=== PATIENT | male | born 1995 | race Caucasian/White ===

== ENCOUNTER 2017-10-25 07:56 | Emergency (ER) | payer MEDICAID, SELFPAY ==
[2017-10-25 08:09] VITALS: BP 132/72; PULSE 60; RESP 16; TEMP 37; O2SAT 100
--- NOTE | 2017-10-25 08:26 | ED.GENADUL ---
Disposition Clinical Impression: Dental caries, Chronic dental pain Disposition: HOME Condition: Stable Instructions: Dental Caries (ED), Chronic Pain (ED) Additional Instructions: Alternate Tylenol and Motrin as needed and directed for pain. Take the antibiotics until finished. Follow-up with a dentist for reevaluation and for likely dental extraction. Return immediately to the emergency department any worsening or new concerning symptoms such as fever, increased pain, redness, swelling and difficulty swallowing. Prescriptions: Penicillin V Potassium 500 mg PO QID 7 Days tablet Forms: Work Release Medical Decision Making - Medical Decision Making 22-year-old male who presents with right lower toothache for the past month worse since yesterday. There are dental caries and missing teeth throughout. Area of dental pain is noted that majority of tooth is missing and base is still present with surrounding edema and erythema but no dental abscess. No evidence of Kwame's angina. Patient is speaking in full sentences and swallowing without difficulty. Vitals within normal limits. Patient does not have a primary care doctor or dentist. Patient given dose of Tylenol here. Patient states he can go directly to the pharmacy. Will give a prescription for penicillin. Patient instructed that he needs to follow-up with a dentist for reevaluation and likely dental extraction. Patient was given dental follow-up information and plan was discussed with care management. Patient was instructed to return immediately if worse. History of Present Illness - General Chief complaint: DentalOral Stated complaint: TOOTH ACHE Time Seen by Provider: 10/25/17 08:07 Source: patient Mode of arrival: ambulatory Limitations: no limitations - History of Present Illness Initial comments: Patient is a 22-year-old male who presents with right lower toothache for the past month. Patient has been taking ibuprofen without relief. Patient denies fever or difficulty swallowing. Patient states he does not have a primary care doctor or dentist. - Related Data Ibuprofen 600 mg PO Q6H PRN #20 tablet 09/18/17 Penicillin V Potassium 500 mg PO QID 7 Days tablet 10/25/17 Allergies Allergy/AdvReac Type Severity Reaction Status Date / Time No Known Allergies Allergy Unverified 10/25/17 08:17 Review of Systems Constitutional: denies: chills, fever Eyes: denies: eye pain ENT: dental pain. denies: ear pain, throat pain Respiratory: denies: cough, shortness of breath Cardiovascular: denies: chest pain, dyspnea on exertion Gastrointestinal: denies: abdominal pain, nausea, vomiting Genitourinary: denies: urgency, dysuria, frequency Musculoskeletal: denies: back pain Skin: denies: rash, lesions Neurological: denies: headache, weakness, numbness Past Medical History - Past Medical History Medical history: no medical history Surgical history: other (Bilateral myringotomy tubes, tonsillectomy) - Social History Smoking status: current everyday smoker Alcohol use: occasionally Drug use: none General Exam - General Limitations: no limitations General appearance: alert, in no apparent distress - Eye Eye exam: Present: EOMI - ENT ENT exam: Present: normal orophraynx, TM's normal bilaterally, other (Dental caries and missing teeth throughout. Majority of tooth and right lower posterior jaw missing and base still present with surrounding mild erythema and edema and tenderness to palpation. There is no fluctuance or abscess noted.) - Neck Neck exam: Present: normal inspection, other (No induration). Absent: lymphadenopathy - Respiratory Respiratory exam: Absent: respiratory distress - Cardiovascular Cardiovascular Exam: Present: regular rate - Neurological Exam Neurological exam: Present: alert, oriented X3 - Psychiatric Psychiatric exam: Present: normal affect - Skin Skin exam: Present: warm, dry, intact Course Vital Signs - 24 hr 10/25/17 08:09 Temperature 98.6 F Pulse 60 Respiratory 16 Rate Blood Pressure 132/72 Pulse Oximetry 100
[2017-10-25 09:03] VITALS: TEMP 46.4; TEMP 8
[2017-10-25] MEDS: Acetaminophen 325 MG TAB 650 MG PO (09:03)
== END 2017-10-25 09:20 | disposition home or self-care (01) ==
PROVIDERS: Emergency Provider Physician Assistant
DX: K02.9 Dental caries, unspecified (principal); K08.89 Other specified disorders of teeth and supporting structures; G89.29 Other chronic pain
CPT/HCPCS: 99283

== ENCOUNTER → 2017-11-09 11:02 | Outpatient (CLI) | payer OTHER, SELFPAY ==
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
== END ==
PROVIDERS: Visit Provider Nurse Practitioner Family
DX: S67.22XD Crushing injury of left hand, subsequent encounter (principal); S60.052D Contusion of left little finger without damage to nail, subsequent encounter
CPT/HCPCS: 99214

== ENCOUNTER 2018-06-26 07:45 | Emergency (ER) | payer MEDICAID, SELFPAY ==
[2018-06-26 07:52] VITALS: BP 156/85; PULSE 90; RESP 16; TEMP 37; O2SAT 100
--- NOTE | 2018-06-26 08:13 | ED.GENADUL_ITS ---
Discharge Plan Disposition Patient Disposition: HOME Condition: Good Discharge Details Chief Complaint: Orthopedic Clinical Impression: Right tennis elbow, Gastric ulcer Primary Care Provider: None,None ED Provider: Jay Pacheco Home Meds and New Rx's Prescriptions: New sucralfate [Carafate] 1 gram tablet 1 gm PO QACHS Qty: 90 RF: 0 omeprazole 40 mg capsule,delayed release(DR/EC) 40 mg PO DAILY Qty: 90 RF: 0 No Action ibuprofen 600 MG tablet 600 mg PO Q6H PRN (Reason: Pain) Qty: 20 RF: 0 Discharge Instructions Instructions: Tennis Elbow Exercises (GEN), Peptic Ulcer (ED), Tennis Elbow (ED) Additional Instructions: Please perform the exercises as directed. Please use the arm band as directed. Please take a maximum of 1000 mg of Tylenol every 6 hours for control of your pain. Please ice your elbow frequently. Please avoid chainsaw use for the next 1-2 weeks. For your suspected stomach ulcer please avoid spicy foods, tomato-based products, citrus-based products, and caffeine. Avoid ibuprofen. Take medication as directed if you notice any worsening of your symptoms, or any new symptoms such as vomiting, diarrhea, fever, chills, shortness of breath, chest pain, numbness, weakness, or fainting , please return immediately to the emergency department for reevaluation. Please follow up with your primary care provider as soon as possible for reassessment and reevaluation. As always, it was a pleasure participating in your medical care today. Medical Decision Making This is a pleasant 22-year-old male who presents for 2 complaints. 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 Improved with time and relaxed mood. Exam demonstrates no signs of orthopedic fracture or significant abnormality requiring radiographic imaging. Signs and symptoms are clinically consistent with medial and lateral epicondylitis secondary to his line of work. No concerning neurologic deficits, no vascular compromise, no osseous abnormality clinically. Recommend Tylenol, ice, and forearm tension band as well as rest from work for the next few weeks for relief of this. Patient also has an episode of mild upset stomach, single episode of mild nausea and vomiting and one episode of slight loose stool with small amount of blood tinge on his toilet paper a small amount of blood tinge in his vomit. He has had no subsequent episodes of that since early this morning. He is feeling much better at this time, and has no abdominal complaints to speak of. Physical exam demonstrates reassuring abdominal exam, reassuring vital signs, unfortunate clinical history of an excessive amount of Monster energy drinks, caffeine and spicy foods. He also demonstrates a small hemorrhoid on rectal exam. No evidence of anal fissure. No history of abdominal or colon cancer. I feel that the patient signs and symptoms are clinically consistent with mild gastritis or gastric ulcer secondary to his diet, as well as small hemorrhoid as to the cause of his small amount of blood on his toilet paper. Physical exam shows no signs or symptoms concerning for an acute surgical abdominal pathology. With no history or family history of colon cancer or colon etiology, I feel that he can be safely discharged with close follow-up with his primary care provider for reassessment, further outpatient management, in addition we discussed the importance of lifestyle modifications and diet change. We discussed red flags which to return. We did recommend that he stop taking ibuprofen. I have extensively reviewed the treatment plan and discharge instructions with the patient. I have addressed all patient concerns at this time. The patient was made aware of what symptoms to monitor for that would warrant a return to the emergency department. Discussed the plan with the patient, they demonstrate verbal understanding and agreement with our assessment and plan at this time. HPI General Date/Time Provider Initiated Documentation: 06/26/18 07:58 . 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 In regards to the elbow pain the patient states that he operates [employer] all day long, and he has been having generalized pain on the medial and lateral aspect of his right dominant elbow for the last 2 weeks. It is worse when he chainsaws. He has some associated tingling in his hand, is relieved with time and rest. He has not been taking Tylenol or Motrin for his symptoms. He denies any other modifying factors. He denies any trauma to the area or injury in the past. In regards to his GI complaints, the patient drinks multiple cups of coffee per day, multiple monsters, and a regular level of spicy food. Symptoms were made worse with the spicy food. He does describe a small amount of blood in his vomit and stool, hi s single episode of vomiting, he states that there is a small amount of streaking in it. He has not had any vomiting since then his symptoms are notably improved with food this morning. In regards to his stool he had one episode of mildly loose stool, and there was a small amount of blood on the toilet paper, he denies any burning sensation in his rectum. He denies any recent foreign travel, other sick contacts, recent antibiotic use, or history of colon cancer. No other complaints at this time. Related Data Home Medications Medication Instructions Recorded Confirmed ibuprofen 600 mg PO Q6H PRN #20 tablet 09/18/17 06/26/18 omeprazole 40 mg PO DAILY #90 cap 06/26/18 sucralfate [Carafate] 1 gm PO QACHS #90 tab 06/26/18 Previous Rx's Medication Instructions Recorded ibuprofen 600 mg PO Q6H PRN #20 tablet 09/18/17 omeprazole 40 mg PO DAILY #90 cap 06/26/18 sucralfate [Carafate] 1 gm PO QACHS #90 tab 06/26/18 Allergies Allergy/AdvReac Type Severity Reaction Status Date / Time No Known Allergies Allergy Unverified 06/26/18 07:56 General Stated Complaint: Orthopedic GUY: 3 Review of Systems Review of Systems All systems reviewed & are unremarkable except as noted in HPI and below PFSH Surgical History Tonsillectomy and adenoidectomy Social History Smoking/Tobacco Use Status: Current-Occasional Tobacco Type: cigarettes Drug use: Daily Substance use type: marijuana Do you feel safe in your relationship?: Yes Exam Narrative Exam Narrative: 1.Const: Well-nourished, Well-developed, appearing stated age 2.Eyes: PERRL, no conjunctival injection, and symmetrical lids. 3.ENT: Atraumatic external nose and ears. Moist MM. Neck: Symmetric, trachea midline, No thyromegaly. 4.CVS: +S1/S2, No murmurs or gallops. Peripheral pulses 2+ and equal in all extremities. Brisk capillary refill in all extremities. 5.RESP: Unlabored respiratory effort. Clear to auscultation bilaterally. No wheezes rales or rhonchi 6.GI: Soft, Nontender/Nondistended, No hepatosplenomegaly. No guarding or rebound. No guarding or rebound. Rectal exam demonstrates no evidence of rectal bleeding, or fissure. Small hemorrhoid is present. No other abnormalities. 7.MSK: Normocephalic/Atraumatic, Extremities w/o deformity. No cyanosis or clubbing, Normal movement of all extremities. Minimal reproducible tenderness at the medial and lateral epicondyles, no crepitus, no pain with flexion and extension of the elbow. No pain in the humerus or forearm. Right upper extremity: symmetrically palpable radial and ulnar pulses. Capillary refill <2 seconds to all digits. Intact sensation to light touch of the radial, median and ulnar nerves demonstrated by testing in the dorsal web space of the thumb, the distal palmar aspect of the index finger, and the lateral surface of the fifth finger. 2 point discrimination intact to 5mm (up to 6mm can be normal in digits 3-5) of discrimination in the affected digit. 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 Intact recurrent median nerve as demonstrated by ability to move thumb fully through opposition, abduction and flexion. No snuffbox tenderness. 8.Skin: Warm, Dry. No rashes or lesions. 9.Neuro: ingredient mixer II-XII grossly intact. Sensation grossly intact, no focal neurologic deficits. 10.Psych: (AAO) x3. Appropriate mood and affect Course Vital Signs Temperature 37 C 06/26/18 07:52 Pulse 90 06/26/18 07:52 Respiratory Rate 16 06/26/18 07:52 Blood Pressure 156/85 H 06/26/18 07:52 Pulse Oximetry 100 06/26/18 07:52 Temperature 37 C 06/26/18 07:52 Temperature Source Skin 06/26/18 07:52 Pulse 90 06/26/18 07:52 Respiratory Rate 16 06/26/18 07:52 Respiratory Effort Non-Labored 06/26/18 07:52 Blood Pressure 156/85 H 06/26/18 07:52 Blood Pressure Position Sitting 06/26/18 07:52 Pulse Oximetry 100 06/26/18 07:52 Oxygen Delivery Method Room Air 06/26/18 07:52 Oxygen Flow Rate 0 06/26/18 07:52 Pain Level 7 06/26/18 08:00
== END 2018-06-26 08:21 | disposition home or self-care (01) ==
LOC: ER 08:29
PROVIDERS: Emergency Provider Student in an Organized Health Care Education/Training Program; PCP Nurse Practitioner Family
DX: M77.11 Lateral epicondylitis, right elbow (principal); K25.3 Acute gastric ulcer without hemorrhage or perforation
CPT/HCPCS: 99283

== ENCOUNTER 2018-09-11 15:40 | Outpatient (REF) | payer MEDICAID, SELFPAY ==
[2018-09-13 13:00] LABS: Helicobacter pylori Ag, Feces Positive (NEGAT)
== END 2018-09-11 16:00 ==
LOC: NCHCN 15:40
PROVIDERS: PCP Nurse Practitioner Family; Visit Provider Nurse Practitioner Family
DX: K29.70 Gastritis, unspecified, without bleeding (principal)
CPT/HCPCS: 87338

== ENCOUNTER 2018-09-14 08:46 | Emergency (ER) | payer MEDICAID, SELFPAY ==
[2018-09-14 08:49] VITALS: BP 120/67; PULSE 74; RESP 14; TEMP 36.6; O2SAT 99
--- NOTE | 2018-09-14 08:58 | ED.GENADUL_ITS ---
Discharge Plan Disposition Patient Disposition: HOME Condition: Stable Discharge Details Chief Complaint: DentalOral Clinical Impression: Pain, dental Primary Care Provider: Arabella Burleson ED Provider: Jatin Hayes Home Meds and New Rx's Prescriptions: New penicillin V potassium 500 mg tablet 500 mg PO QID 7 Days Qty: 28 RF: 0 Continued ibuprofen 600 MG tablet 600 mg PO Q6H PRN (Reason: Pain) Qty: 20 RF: 0 omeprazole 40 mg capsule,delayed release(DR/EC) 40 mg PO DAILY Qty: 90 RF: 0 Discharge Instructions Instructions: Toothache (ED) Additional Instructions: follow up with a dentist. If you develop difficulty swallowing liquids or difficulty breathing return to the emergency department follow up with your primary care provider for the positive lab test you had done on 09/11 as you should be on medications for this Stand Alone Forms: Work Release Medical Decision Making 22 yo male comes in with a day of right upper and lower mid molar pain. states he has chronic dental issues/caries and denies dyspnea or difficulty swallowing. He is in no distress on eaxm, numerous caries on exam, midline uvula, no submadibular swelling or pain over hyoid, no findings to suggest rpa, precision assembler bench, epiglotitis or ludwigs. He has pain with percussion over mid right upper and lower molars, will tx with abx and advised f/u with his pcp regarding his recent positive h pylori and a dentist for his dental problems, and return precautions given. He has no abdominal pain now or tenderness so do not feel further acute therapy for his gastritis indicated and can f/u with his pcp Differential Diagnosis dental pain, abscess, pulpitis HPI General Mode of arrival: ambulatory . Date/Time Provider Initiated Documentation: 09/14/18 08:49 . Limitations to Documentation: no limitations . Information obtained by: patient . History of Present Illness 22 year old M presents to the emergency department with the chief complaint of dental pain, described as moderate, Quality is described as aching, and is localized to the mouth. Patient reports no radiation. Patient started experiencing this day(s) (1) and it has been constant. No relieving factors improve symptom(s), No exacerbating factors reported . Patient notes no other symptoms.. Patient did receive the following treatments prior to arrival, none Related Data Home Medications Medication Instructions Recorded Confirmed ibuprofen 600 mg PO Q6H PRN #20 tablet 09/18/17 09/14/18 omeprazole 40 mg PO DAILY #90 cap 06/26/18 09/14/18 penicillin V potassium 500 mg PO QID 7 Days #28 tab 09/14/18 Previous Rx's Medication Instructions Recorded ibuprofen 600 mg PO Q6H PRN #20 tablet 09/18/17 omeprazole 40 mg PO DAILY #90 cap 06/26/18 penicillin V potassium 500 mg PO QID 7 Days #28 tab 09/14/18 Allergies Allergy/AdvReac Type Severity Reaction Status Date / Time No Known Allergies Allergy Unverified 09/14/18 08:54 General Stated Complaint: DentalOral GUY: 4 Review of Systems Review of Systems All systems reviewed & are unremarkable except as noted in HPI and below Constitutional Denies chills, Denies fever(s) and Denies weakness ENT Denies change in voice Cardiovascular Denies chest pain and Denies dyspnea Respiratory Denies cough and Denies dyspnea Gastrointestinal Denies abdominal pain, Denies nausea and Denies vomiting Musculoskeletal Denies joint swelling Neurologic Denies weakness PFSH Surgical History Tonsillectomy and adenoidectomy Social History Smoking/Tobacco Use Status: Current-Occasional Tobacco Type: cigarettes Drug use: Daily Substance use type: marijuana Do you feel safe at home: Yes Do you feel safe in your relationship?: Yes Exam Const General: no acute distress Orientation: alert HENMT Head: normal to inspection Ears: external ears normal General nose exam: external nose normal Mouth: moist mucous membranes Eyes General: appearance normal, both eyes and all related structures Neck Neck: normal visual inspection Resp Effort & Inspection: normal respiratory effort and able to speak in complete sentences Cardio Rate: regular rate Skin General skin exam: no rashes or lesions noted Neuro General: alert and oriented x3 Extrem General: normal to inspection Psych Mental Status: mental status grossly normal Course Vital Signs Temperature 36.6 C 09/14/18 08:49 Pulse 74 09/14/18 08:49 Respiratory Rate 14 09/14/18 08:49 Blood Pressure 120/67 09/14/18 08:49 Pulse Oximetry 99 09/14/18 08:49 Temperature 36.6 C 09/14/18 08:49 Temperature Source Skin 09/14/18 08:49 Pulse 74 09/14/18 08:49 Respiratory Rate 14 09/14/18 08:49 Respiratory Effort 09/14/18 08:56 Blood Pressure 120/67 09/14/18 08:49 Blood Pressure Position Sitting 09/14/18 08:49 Pulse Oximetry 99 09/14/18 08:49 Oxygen Delivery Method Room Air 09/14/18 08:49 Oxygen Flow Rate 0 09/14/18 08:49 Pain Level 7 09/14/18 08:56 Comment 09/14/18 08:49
== END 2018-09-14 09:02 | disposition home or self-care (01) ==
PROVIDERS: Emergency Provider Emergency Medicine; PCP Nurse Practitioner Family
DX: K08.89 Other specified disorders of teeth and supporting structures (principal)
CPT/HCPCS: 99283

== ENCOUNTER 2018-09-14 20:24 | Emergency (ER) | payer MEDICAID, SELFPAY ==
[2018-09-14 20:33] VITALS: BP 124/69; PULSE 60; RESP 16; TEMP 36.8; O2SAT 100
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
[2018-09-14] MEDS: Ibuprofen 800 MG TAB PO (21:01)
[2018-09-14] MEDS: Acetaminophen 500 MG TAB 1000 MG PO (21:01)
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
== END 2018-09-14 22:28 | disposition home or self-care (01) ==
PROVIDERS: Emergency Provider Student in an Organized Health Care Education/Training Program; PCP Nurse Practitioner Family
DX: S02.2XXA Fracture of nasal bones, initial encounter for closed fracture (principal); Y04.0XXA Assault by unarmed brawl or fight, initial encounter
CPT/HCPCS: 99284; 70450; 70486

== ENCOUNTER 2019-04-08 12:58 | Emergency (ER) | payer MEDICAID, SELFPAY ==
[2019-04-08 13:03] VITALS: BP 122/62; PULSE 50; RESP 18; TEMP 36.5; O2SAT 99
--- NOTE | 2019-04-08 13:17 | W.ED.GENAD ---
Discharge Plan Disposition Patient Disposition: HOME Condition: Improving Discharge Details Chief Complaint: GI Bleed Clinical Impression: Gastritis Primary Care Provider: Arabella Burleson ED Provider: Patrice Benson Home Meds and New Rx's Prescriptions: New famotidine 20 mg tablet 20 mg PO DAILY Qty: 30 RF: 0 sucralfate [Carafate] 1 gram tablet 1 gm PO BID Qty: 60 RF: 0 Discontinued omeprazole 40 mg capsule,delayed release(DR/EC) 40 mg PO DAILY Qty: 90 RF: 0 Discharge Instructions Instructions: Gastritis (ED) Additional Instructions: We discussed performing laboratory work today which you have declined. Return at any time for reconsideration. Please take medications as prescribed. Continue your efforts to avoid spicy, fatty, fried, tomato-based foods. Return for fever, persistent vomiting, or any other acute concerns. Please follow-up with Dr. Burleson in the next 7 to 10 days for recheck. Stand Alone Forms: Work Release Medical Decision Making 23-year-old male with a history of gastritis, not taking medicines for 3 months. States he has had some worsening epigastric discomfort with eating tomato sauce-based foods and [place]. States this he has near daily morning emesis and today it was blood flecked. On exam his vital signs are normal and he is tender in the epigastrium. Discussed with him screening laboratories to rule out anemia or evidence of significant infection. He declines any laboratory analysis at this time. I do feel this is consistent with gastritis will start him on famotidine as well as Carafate, as the patient states he did not tolerate PPI in the past. He understands return precautions to the ER. HPI General Mode of arrival: ambulatory. Date/Time Provider Initiated Documentation: 04/08/19 13:07. Limitations to Documentation: no limitations. Information obtained by: patient. History of Present Illness 23 year old M presents to the emergency department with the chief complaint of Months to years of epigastric pain and daily emesis, described as mild and similar to prior episodes, Quality is described as dull, and is localized to the abdomen. Patient reports no radiation. Patient started experiencing this month(s) and it has been constant. No relieving factors improve symptom(s), Other factors that worsen symptoms (Tomato based foods and chili) . Patient notes nausea/vomiting. Patient did receive the following treatments prior to arrival, none Related Data Home Medications Medication Instructions Recorded Confirmed famotidine 20 mg PO DAILY #30 tab 04/08/19 sucralfate [Carafate] 1 gm PO BID #60 tab 04/08/19 Previous Rx's Medication Instructions Recorded famotidine 20 mg PO DAILY #30 tab 04/08/19 sucralfate [Carafate] 1 gm PO BID #60 tab 04/08/19 Allergies Allergy/AdvReac Type Severity Reaction Status Date / Time No Known Allergies Allergy Unverified 04/08/19 13:06 General Stated Complaint: GI Bleed GUY: 3 Review of Systems Narrative: Has not taken medications in 3 months. No dark or bloody stools. No fever. 6 systems reviewed and otherwise negative [facility] Surgical History (Updated 01/10/18 @ 14:35 by [employer] [place]) Tonsillectomy and adenoidectomy Social History Smoking/Tobacco Use Status: Current every day Tobacco Type: cigarettes Alcohol Intake: former Drug use: Daily Substance use type: marijuana Do you feel safe at home: Yes Do you feel safe in your relationship?: Yes Exam Narrative Exam Narrative: GEN: awake, alert, oriented 3. Pleasant, well groomed, interactive. HEAD: Normocephalic, atraumatic ENT: Mucous membranes moist, oropharynx unremarkable, External ear exam unremarkable EYES: PERRL, EOMI NECK: Full ROM, no THOMAS, no menigismus CHEST/RESP: Nontender, clear to auscultation bilateral, no wheeze/rhonchi/rales CARDIOVASCULAR: RRR, no murmur, rub patricia. 2+ Rad pulse bilateral ABDOMEN: Soft, tender in epigastrium without rebound or guarding, no mass. +Bowel sounds EXT: Full ROM, no edema, no rash Neuro: Grossly normal neurologic exam, conversant, interactive. Psych: Speech fluent, thoughts congruent, affect normal Course Vital Signs Vital signs: Vital Signs Temperature 36.5 C 04/08/19 13:03 Pulse 50 L 04/08/19 13:03 Respiratory Rate 18 04/08/19 13:03 Blood Pressure 122/62 04/08/19 13:03 Pulse Oximetry 99 04/08/19 13:03 Temperature 36.5 C 04/08/19 13:03 Temperature Source Skin 04/08/19 13:03 Pulse 50 L 04/08/19 13:03 Respiratory Rate 18 04/08/19 13:03 Respiratory Effort Non-Labored 04/08/19 13:07 Blood Pressure 122/62 04/08/19 13:03 Blood Pressure Position Sitting 04/08/19 13:03 Pulse Oximetry 99 04/08/19 13:03 Pain Level 4 04/08/19 13:03
== END 2019-04-08 13:33 | disposition home or self-care (01) ==
LOC: ER 13:34
PROVIDERS: Emergency Provider Emergency Medicine; PCP Nurse Practitioner Family
DX: K29.70 Gastritis, unspecified, without bleeding (principal)
CPT/HCPCS: 99283

== ENCOUNTER 2019-08-01 16:22 | Emergency (ER) | payer MEDICAID, SELFPAY ==
[2019-08-01 16:25] VITALS: BP 127/79; PULSE 58; RESP 16; TEMP 36.6; O2SAT 100
--- NOTE | 2019-08-01 16:30 | DI.RAD_ITS ---
EXAM: XR FOOT RT COMPLETE CLINICAL HISTORY: pain, injury. TECHNIQUE: 2D digital imaging was performed. COMPARISON: No exams were available for comparison FINDINGS: BONES: No acute fracture is present. No bony destructive lesion is seen. JOINTS: No dislocation present. SOFT TISSUE: Normal. IMPRESSION: Unremarkable radiographs of the right foot. DATA REPOSITORY: RADIATION DOSE DELIVERED:
--- NOTE | 2019-08-01 16:30 | DI.RAD_ITS ---
EXAM: XR ANKLE RT COMPLETE CLINICAL HISTORY: pain, injury TECHNIQUE: 2D digital imaging was performed. COMPARISON: CR LEFT ANKLE COMPLETE from 01/05/2012 FINDINGS: There is some soft tissue swelling around both malleoli. No fracture or ankle mortise widening is s een. The talar dome is intact. IMPRESSION: Soft tissue swelling.
--- NOTE | 2019-08-01 16:41 | W.ED.GENAD ---
Discharge Plan Disposition Patient Disposition: HOME Condition: Stable Discharge Details Chief Complaint: Orthopedic Clinical Impression: High ankle sprain of right lower extremity, Knee pain, chronic Primary Care Provider: Arabella Burleson ED Provider: Puja Bruce Discharge Instructions Instructions: Ankle Sprain (ED), Chronic Pain (ED) Additional Instructions: Rest. Activities as tolerated. Elevate injury to prevent swelling. Splint for 1 week as discussed. Ice to the area of discomfort for 15 min. 3-5 times daily. Motrin every 8 hours with food or Tylenol every 6 hours for soreness if needed over the counter for comfort. Followup with orthopedic doctor as discussed if not improving in one week. Return for any worsening or concerns sooner if needed. Stand Alone Forms: Work Release Referrals: Patrice Painting MD [ [facility] STAFF PHYSICIAN] - [facility] General Date/Time Provider Initiated Documentation: 08/01/19 16:25. HPI Narrative: This is a 23-year-old patient presenting to the emergency room complaints of right ankle and foot injury after a barrel fell onto his leg when he was unloading an 18 [employer] truck. Patient reports injury occurred yesterday. Patient reports persistent pain and limping gait since that time. Patient denies any other sites of pain or injury. Denies head neck or back pain. Denies upper extremity injuries. No left leg complaints. Patient denies numbness, tingling or weakness associated. Patient denies any open wounds. Mild swelling. When discussing his right lower leg he does mention chronic right knee pain which is been present for several months. Patient denies obvious injury or trauma but reports his knee feels stuck after sitting in a bent position for long period of time. Patient reports difficulty straightening the leg thereafter but denies any obvious locking. Patient reports occasional pain with ambulation. Denies giving out. Denies swelling. No other concerns or complaints at this time Related Data Allergies Allergy/AdvReac Type Severity Reaction Status Date / Time No Known Allergies Allergy Unverified 08/01/19 16:27 General Stated Complaint: Orthopedic GUY: 4 Review of Systems All systems reviewed & are unremarkable except as noted in HPI and below Constitutional Constitutional: Denies chills, Denies fatigue, Denies fever(s), Denies headache(s) and Denies malaise ENT Ears, Nose, Mouth, and Throat: Denies headache(s) and Denies neck pain Musculoskeletal Musculoskeletal: Reports abnormal gait (Limping), Denies back pain, Denies deformity, Reports arthralgias (Ankle), Denies neck pain, Denies numbness, Denies stiffness and Denies tingling Integumentary/Breasts Skin/Breast: Denies wounds Neurologic Neurologic: Reports abnormal gait (Limping), Denies headache(s), Denies numbness and Denies tingling Endocrine Endocrine: Denies fatigue [facility] Surgical History (Updated 01/10/18 @ 14:35 by [employer] [place]) Tonsillectomy and adenoidectomy Social History Smoking/Tobacco Use Status: Current every day Tobacco Type: cigarettes Alcohol Intake: former Drug use: Daily Substance use type: marijuana Do you feel safe at home: Yes Do you feel safe in your relationship?: Yes Exam Narrative Exam Narrative: This is a 23-year-old patient presenting for complaints of right lower leg injury after a barrel fell on his leg at work. Patient reports there landed directly on his right ankle. Patient denies other resulting injuries. Patient denies any open wounds. Patient denies numbness, tingling or paresthesias associated. Limping gait present. Patient reports injury occurred yesterday. Patient is also mentioning right knee pain when reviewing his lower extremity exam which has been chronic and present for several months. Patient denies obvious injury or trauma but reports a sensation of pain when the knee in a seated position for long period of time then he attempts to straighten. Patient reports an occasional rubbing sensation. Denies obvious swelling of the knee. On exam patient has full range of motion of upper extremities and left leg. Focal pain with palpation of the medial and lateral aspect of the ankle as well as the base of the great toe. Patient has no significant knee pain with palpation. Patient does have mild pain with varus stress of the knee. No obvious giving. No clear laxity. No effusion. No palpable bony tenderness of the right knee. No significant proximal or mid flores pain with palpation. We will plan to x-ray ankle and foot on the right. Given patient's lack of bony pain with palpation and chronic knee complaints will hold on x-ray evaluation of the right knee. Patient agrees with this plan of care as he has no significant concern of fracture in the right knee. X-ray evaluation of both patient's right ankle and foot reveal no acute fracture. Mild lateral swelling present at the ankle. Discussed results with patient. Discussed rice. Discussed use of medications as an outpatient as patient reports he was previously taking 1500 mg of Tylenol for pain discussed maximum doses and best use. We discussed splinting devices. Patient's preference is Wil wrap to knee and ankle with a barrier splint for her right ankle. Patient's preference is crutches. Ortho referral recommended for persistence of pain. Patient agrees to this plan of care. Work note provided for 1 week to rest. Patient agrees his plan of care. The patient was stable and requested discharge. Prior to discharge, my usual and customary return precautions were reviewed with the patient - this included follow-up instructions and reasons to return to the Emergency Department if conditions worsens, does not improve as expected, or other new concerns arise. Course Vital Signs Vital signs: Vital Signs Temperature 36.6 C 08/01/19 16:25 Pulse 58 L 08/01/19 16:25 Respiratory Rate 16 08/01/19 16:25 Blood Pressure 127/79 08/01/19 16:25 Pulse Oximetry 100 08/01/19 16:25 Temperature 36.6 C 08/01/19 16:25 Temperature Source Tympanic 08/01/19 16:25 Pulse 58 L 08/01/19 16:25 Respiratory Rate 16 08/01/19 16:25 Respiratory Effort Non-Labored 08/01/19 16:27 Blood Pressure 127/79 08/01/19 16:25 Blood Pressure Position Sitting 08/01/19 16:25 Pulse Oximetry 100 08/01/19 16:25 Oxygen Delivery Method Room Air 08/01/19 16:25 Oxygen Flow Rate 0 08/01/19 16:25 Pain Level 10 08/01/19 16:25
--- NOTE | 2019-08-01 17:13 | DI.VRAD_ITS ---
PROCEDURE INFORMATION: Exam: XR Right Foot Complete Exam date and time: 08/01/2019 4:49 PM Age: 23 years old Clinical indication: Other: Pain, injury TECHNIQUE: Imaging protocol: XR Right foot. Views: 3 or more views. COMPARISON: No relevant prior studies available. FINDINGS: Bones/joints: No fracture dislocation or abnormal periosteal reaction. Joint spaces are well preserved. Soft tissues: There is no radiopaque foreign body.There is no gas in the soft tissue. No soft tissue calcification IMPRESSION: No etiology of the patient's pain is demonstrated. Dictated and Authenticated by: Jatin Johnson MD. Ordering:PHILIPP Luo MD
--- NOTE | 2019-08-01 17:14 | DI.VRAD_ITS ---
PROCEDURE INFORMATION: Exam: XR Right Ankle Exam date and time: 08/01/2019 4:51 PM Age: 23 years old Clinical indication: Other: Pain, injury TECHNIQUE: Imaging protocol: XR Right ankle. Views: 3 or more views. COMPARISON: No relevant prior studies available. FINDINGS: Bones/joints: No fracture or dislocation or abnormal periosteal reaction. Soft tissues: Minimal soft tissue swelling over the lateral malleolus .There is no gas in the soft tissue.There is no radiopaque foreign body. IMPRESSION: Minimal lateral swelling. Dictated and Authenticated by: Jatin Johnson MD. Ordering:PHILIPP Luo MD
== END 2019-08-01 17:47 | disposition home or self-care (01) ==
PROVIDERS: Emergency Provider Physician Assistant; PCP Nurse Practitioner Family
DX: S93.491A Sprain of other ligament of right ankle, initial encounter (principal); M25.561 Pain in right knee; G89.29 Other chronic pain; W20.8XXA Other cause of strike by thrown, projected or falling object, initial encounter; Y99.0 Civilian activity done for income or pay
CPT/HCPCS: 29515; 99284; 73610; 73630; L4350

== ENCOUNTER 2020-01-25 07:53 | Emergency (ER) | payer MEDICAID, SELFPAY ==
[2020-01-25] VITALS (17 sets, daily range): BP systolic 119–151; BP diastolic 64–84; PULSE 82–101; RESP 11–23; TEMP 37; O2SAT 97–100
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
[2020-01-25] MEDS: Normal Saline Flush 10 ML SYR IVP (08:05)
[2020-01-25] MEDS: Lactated Ringers 1,000 ML 1000 ML IV (08:15)
[2020-01-25 08:24] LABS: Abs Immature Grans 0.09 10^3/uL (0.0-0.06); Absolute Basophil Count 0.03 10^3/uL (0.0-0.2); Absolute Eosinophil Count 0.08 10^3/uL (0.0-0.7); Absolute Lymphocyte Count 2.94 10^3/uL (1.2-3.4); Absolute Monocyte Count 0.62 10^3/uL (0.1-0.8); Absolute Neutrophil Count 4.86 10^3/uL (1.2-6.7); Basophils % 0.3; Eosinophils % 0.9; HCT 47.5 % (40.0-50.0); HGB 16.8 g/dL (13.5-17.5); Lymphocytes % 34.1; MCH 32.1 pg (27.0-33.0); MCHC 35.4 % (32.0-36.0); MCV 90.8 fL (80-95); MPV 9.5 fL (8.0-11.0); Monocytes % 7.2; Neutrophils % 56.5; Nucleated RBC 0 %; Platelet Count 192 10^3/uL (130-400); RBC 5.23 10^6/uL (4.36-5.78); RDW 12.7 % (11.8-14.1); RDW-SD 41.7 fL; WBC 8.62 10^3/uL (4.4-10.8)
[2020-01-25 08:38] LABS: ALT 19 U/L (16-63); AST 22 U/L (15-37); Albumin 4.4 g/dL (3.4-5.0); Alkaline Phosphatase 70 U/L (46-116); Anion Gap 8.5 mmol/L (3-11); BUN 16 mg/dL (7-18); Bilirubin, Total 0.6 mg/dL (0.2-1.0); CO2 27.5 mmol/L (21.0-32.0); CREATININE 0.94 mg/dL (0.70-1.30); Calcium 9.1 mg/dL (8.5-10.1); Chloride 102 mmol/L (98-107); Glucose 89 mg/dL (74-106); Potassium 3.3 mmol/L (3.5-5.1); Sodium 138 mmol/L (136-145); Total Protein 7.8 g/dL (6.4-8.2)
[2020-01-25] MEDS: Omnipaque 350 MG/ML 100 ML BTL IJ (08:47)
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
== END 2020-01-25 09:53 | disposition home or self-care (01) ==
PROVIDERS: Emergency Provider Physician Assistant; PCP Nurse Practitioner Family
DX: S13.4XXA Sprain of ligaments of cervical spine, initial encounter (principal); V48.5XXA Car driver injured in noncollision transport accident in traffic accident, initial encounter; M62.838 Other muscle spasm; M54.6 Pain in thoracic spine
CPT/HCPCS: 74177; 80053; 96361; 96374; 99285; 70450; 71260; 72125; 85025; 99284; J3490; L0172

== ENCOUNTER 2020-04-06 16:09 | Emergency (ER) | payer MEDICAID, SELFPAY ==
[2020-04-06 16:17] VITALS: BP 135/94; PULSE 106; RESP 18; TEMP 37.2; O2SAT 96
--- NOTE | 2020-04-06 16:56 | ED.GENADUL_ITS ---
Discharge Plan Disposition Patient Disposition: HOME Condition: Stable Discharge Details Clinical Impression: Dental infection Primary Care Provider: Arabella Burleson ED Provider: Irlanda Hernandez Home Meds and New Rx's Prescriptions: New clindamycin HCl 150 mg capsule 450 mg PO TID 7 Days Qty: 63 RF: 0 Continued ibuprofen 800 mg Tablet 800 mg PO Q8H PRNRF: 0 methocarbamol 750 mg tablet 750 mg PO TID PRNRF: 0 Discharge Instructions Instructions: Clindamycin (By mouth), Dental Abscess (ED) Additional Instructions: Encourage water intake. You may continue with 600 mg of ibuprofen every 6 hours and/or 1000 mg of Tylenol every 6 hours. Please take the antibiotics as prescribed. Even if symptoms improve, please take the entire course. Your imaging today shows enlarged lymph nodes with your infection. You will need to follow-up with a dentist as soon as possible. Please call tomorrow to schedule follow-up appointment. Please start first with [facility] where you have been seen historically. Attached is a list of local dentist. If you develop increased swelling, fever/chills or the new/worsening symptoms please seek care urgently once again. Referrals: Arabella Burleson [Primary Care Provider] - Discharge Data Discharge Date/Time-TO BE ENTERED AT DEPARTURE: 04/06/20 19:19 Medical Decision Making Patient is a pleasant 24-year-old gentleman presenting today with chief complaint of left lower dental pain. He reports that dental pain began a few days ago. Has progressively increased. She denies any fevers or chills. States that he has known poor tooth in this area but has not had infection there. Has not seen a dentist in some time. He reports he has been noting increased swelling. States he is having pain when trying to open his mouth. On exam, patient appears nontoxic. Patient noted to be slightly tachycardic with a heart rate of 106. Patient does have swelling to the left lower aspect of his jaw. Slight swelling under the left side of his tongue but none noted externally. He has limited mobility of his jaw. Palpable lymphadenopathy. While I do not see any evidence of fulminant ludwigs and exam of posterior orpharynx does not suggest peritonsilar abscess, I do feel that imaging is appropriate beased on exam to look for deeper space infection. Discussed plan and concerns with [facility] patient who is in agreement. Will obtain baseline labs and give dose of IV abx. FINDINGS: Nasopharynx: Unremarkable. Oropharynx: Unremarkable. No significant tonsillar enlargement. Hypopharynx: Unremarkable. Larynx: Unremarkable. Normal epiglottis. Retropharyngeal space: Unremarkable. Submandibular/Parotid glands: Normal. Glands are normal in size. Thyroid: Normal. No enlarged or calcified nodules. Lymph nodes: submandibular lymph nodes measuring up to 1.1 cm. Shotty lymph nodes in the jugular chains. Trachea: Visualized trachea is unremarkable. Lungs: Unremarkable as visualized. Bones/joints: Straightening of the spine which could be related to positional artifact or muscle spasms. Soft tissues: Unremarkable. No significant soft tissue swelling. IMPRESSION: Straightening of the spine which could be related to positional artifact or muscle spasms. submandibular lymph nodes measuring up to 1.1 cm. Shotty lymph nodes in the jugular chains. Labs reviewed. Significant for leukocytosis with a white count of 13.5. CMP without significant abnormality. I discussed the findings with the patient. Normally that there is no evidence to suggest Kwame's for significant abscess in the posterior oropharynx. As the patient does have focal swelling noted on exam, I do feel that attempt to open this would be appropriate as I am concerned he is forming abscess near the infected tooth. I discussed risk/benefits as well as expected procedural steps with the patient. Procedure note: Using standard sterile technique, the patient was first anesthetized with 1% lidocaine plain. 1 cc was infiltrated. An 18-gauge was then used to infiltrate the area. Patient had a hard time holding still for this. Had only minimal amount of purulent discharge from area of opening. Patient otherwise tolerated this well. 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 Patient will be continued on oral antibiotics. Encourage close follow-up with dentist. List of local dentist was given to the patient. Return precautions were discussed. All of his questions and concerns were addressed and he is in agreement with this plan. HPI General Mode of arrival: ambulatory . Date/Time Provider Initiated Documentation: 04/06/20 16:55 . Limitations to Documentation: no limitations . Information obtained by: patient . History of Present Illness 24 year old M presents to the emergency department with the chief complaint of left lower dental pain, described as severe, with intensity rated at 8. Quality is described as sharp, and is localized to the mouth. Patient neck. Patient started experiencing this day(s) (3) and it has been constant. No relieving factors improve symptom(s), Eating worsens symptoms . Patient notes no other symptoms.. Patient did receive the following treatments prior to arrival, none Related Data Home Medications Medication Instructions Recorded Confirmed clindamycin HCl 450 mg PO TID 7 Days #63 cap 04/06/20 ibuprofen 800 mg PO Q8H PRN 04/06/20 04/06/20 methocarbamol 750 mg PO TID PRN 04/06/20 04/06/20 Previous Rx's Medication Instructions Recorded clindamycin HCl 450 mg PO TID 7 Days #63 cap 04/06/20 Allergies Allergy/AdvReac Type Severity Reaction Status Date / Time No Known Allergies Allergy Unverified 04/06/20 16:20 General Stated Complaint: DentalOral GUY: 4 Review of Systems Constitutional Constitutional: Reports as per HPI, Denies chills, Denies fatigue, Denies fev er(s), Denies headache(s) and Denies poor appetite Eyes Eyes: Denies change in vision and Denies irritation ENT Ears, Nose, Mouth, and Throat: Reports as per HPI, Reports dental pain, Denies dysphagia, Denies dizziness, Denies dry mouth, Denies ear discharge, Denies otalgia, Reports facial pain, Denies headache(s), Denies hoarseness, Denies lip swelling, Denies nasal congestion, Denies odynophagia and Denies sore throat Cardiovascular Cardiovascular: Reports as per HPI and Denies chest pain Respiratory Respiratory: Reports as per HPI and Denies cough Gastrointestinal Gastrointestinal: Reports as per HPI, Denies dysphagia, Denies nausea, Denies odynophagia and Denies vomiting Integumentary/Breasts Skin/Breast: Reports as per HPI, Denies erythema, Denies rash and Denies skin pain Neurologic Neurologic: Reports as per HPI, Denies dizziness and Denies headache(s) Endocrine Endocrine: Denies fatigue Allergic/Immunologic Allergic/Immunologic: Denies lip swelling PFSH Surgical History Tonsillectomy and adenoidectomy Social History Smoking/Tobacco Use Status: Current every day Tobacco Type: cigarettes Smoking risk assessment performed?: Yes Alcohol Intake: former Drug use: Daily Substance use type: marijuana Do you feel safe at home: Yes Do you feel safe in your relationship?: Yes Exam Const General: cooperative, healthy appearing, comfortable, no acute distress, well developed and well groomed Nutritional Appearance: average body habitus and well nourished Orientation: alert and awake [facility] Head: normal to inspection, normocephalic and atraumatic Ears: hearing grossly normal bilaterally, external ears normal and TM's normal bilaterally General nose exam: external nose normal and nares normal Face and sinus: normal facial exam, sinuses nontender and face symmetric Mouth: oral mucosae normal, lip normal, tongue normal, oropharynx normal, moist mucous membranes, no audible dysphonia, no drooling, no muffled voice (patient soft spoken, he is unsure if this is his baseline) and restricted motion (2 finger opening) Teeth and gingiva: poor dentition (broken and darkened left lower tooth) Throat: posterior oropharynx normal, tonsils normal and uvula midline Eyes General: appearance normal, both eyes and all related structures Neck Neck: normal visual inspection, full ROM, supple, no anterior neck swelling and lymphadenopathy Resp Effort & Inspection: normal respiratory effort, able to speak in complete sentences and no respiratory distress Auscultation: clear to auscultation bilaterally, no rales, no rhonchi and no wheezes Cardio Rate: regular rate Rhythm: regular rhythm Heart Sounds: S1 normal and S2 normal Skin General skin exam: no rashes or lesions noted Trauma: no lacerations or abrasions Neuro General: patient alert and patient awake Cognition: normal cognition Speech: speech normal Gait: normal gait Psych Appearance: grossly normal and well kempt Mental Status: mental status grossly normal Speech and Movement: speech and movement normal Course Vital Signs Vital signs: Vital Signs Temperature 37.2 C 04/06/20 16:17 Pulse 106 H 04/06/20 16:17 Respiratory Rate 18 04/06/20 16:17 Blood Pressure 135/94 H 04/06/20 16:17 Pulse Oximetry 96 04/06/20 16:17 Temperature 37.2 C 04/06/20 16:17 Temperature Source Skin 04/06/20 16:17 Pulse 106 H 04/06/20 16:17 Respiratory Rate 18 04/06/20 16:17 Respiratory Effort Non-Labored 04/06/20 16:21 Blood Pressure 135/94 H 04/06/20 16:17 Blood Pressure Position Sitting 04/06/20 16:17 Pulse Oximetry 96 04/06/20 16:17 Oxygen Delivery Method Room Air 04/06/20 16:17 Oxygen Flow Rate 0 04/06/20 16:17 Pain Level 8 04/06/20 16:17
--- NOTE | 2020-04-06 17:00 | DI.CT_ITS ---
EXAM: CT NECK W CLINICAL HISTORY: left sided dental pain, swelling. TECHNIQUE: Imaging Protocol: Axial computed tomography images with coronal and sagittal reformatted images were created and reviewed CONTRAST MATERIAL: Intravenous: Omnipaque 350 Contrast volume: 100 cc COMPARISON: CT CT HEAD CERVICAL SPINE WO from 01/25/2020 FINDINGS: Parotids/submandibular/thyroid gland: Normal. Lymphadenopathy: There is scattered lymph nodes seen along the level one to level three, likely phys iologic in nature. Carotids/Jugular: Within normal limits. Soft tissues: The floor the mouth is unremarkable. The epiglottis and vocal cords are within normal limits. No tonsillar enlargement. Orbits and sinuses are unremarkable. The mastoid air cells are c lear. Images through both lung apices are unremarkable. The visualized portions of the brain are g rossly normal. IMPRESSION: Small cervical lymph nodes, no pathologically enlarged lymph nodes or other acute abnormality. RADIATION DOSE DELIVERED: 392.15mGy.cm Total DLP DATA REPOSITORY: All CT scans at this facility are submitted to the National Radiology Data Registry (NRDR) Dose Index Registry (DIR) with the [employer] ([employer]). RADIATION OPTIMIZATION: All CT scans at this facility use at least one of these dose optimization te chniques: automated exposure control; mA and/or kV adjustment per patient size (includes targeted exa ms where dose is matched to clinical indication); or iterative reconstruction.
[2020-04-06] MEDS: Normal Saline 1,000 ML 1000 ML IV (17:11)
[2020-04-06] MEDS: Normal Saline Flush 10 ML SYR IVP (17:18)
[2020-04-06] MEDS: CLINDAMYCIN 600 MG/50 ML BAG 100 MG IVPB (17:18)
[2020-04-06] MEDS: Acetaminophen 500 MG TAB 1000 MG PO (17:18)
[2020-04-06 17:20] LABS: Abs Immature Grans 0.03 10^3/uL (0.0-0.06); Absolute Eosinophil Count 0.04 10^3/uL (0.0-0.7); Basophils % 0.1; Eosinophils % 0.3; HCT 47.1 % (40.0-50.0); HGB 16.7 g/dL (13.5-17.5); Immature Grans % 0.2; Lymphocytes % 18.3; MCH 32.6 pg (27.0-33.0); MCHC 35.5 % (32.0-36.0); MCV 91.8 fL (80-95); Monocytes % 6.6; Neutrophils % 74.5; Nucleated RBC 0 %; Platelet Count 209 10^3/uL (130-400); RBC 5.13 10^6/uL (4.36-5.78); RDW 12.1 % (11.8-14.1); RDW-SD 41.1 fL; WBC 13.57 10^3/uL (4.4-10.8)
[2020-04-06 17:21] LABS: Absolute Basophil Count 0.01 10^3/uL (0.0-0.2); Absolute Lymphocyte Count 2.48 10^3/uL (1.2-3.4); Absolute Neutrophil Count 10.11 10^3/uL (1.2-6.7)
[2020-04-06 17:38] LABS: ALT 16 U/L (16-63); AST 8 U/L (15-37); Alkaline Phosphatase 63 U/L (46-116); Anion Gap 8.1 mmol/L (3-11); BUN 8 mg/dL (7-18); Bilirubin, Total 0.4 mg/dL (0.2-1.0); CO2 25.9 mmol/L (21.0-32.0); CREATININE 0.73 mg/dL (0.70-1.30); Calcium 8.9 mg/dL (8.5-10.1); Chloride 104 mmol/L (98-107); Glucose 92 mg/dL (74-106); Potassium 3.7 mmol/L (3.5-5.1); Sodium 138 mmol/L (136-145); Total Protein 7.5 g/dL (6.4-8.2)
[2020-04-06] MEDS: Omnipaque 350 MG/ML 100 ML BTL IJ (18:01)
[2020-04-06] MEDS: Normal Saline - Diluent 50 ML VIAL IV (18:01)
--- NOTE | 2020-04-06 18:26 | DI.VRAD_ITS ---
PROCEDURE INFORMATION: Exam: CT Neck With Contrast Exam date and time: 04/06/2020 5:53 PM Age: 24 years old Clinical indication: Painful swallowing and throat pain TECHNIQUE: Imaging protocol: Computed tomography images of the neck with intravenous contrast. COMPARISON: CT HEAD CERVICAL SPINE WO 01/25/2020 8:35 AM FINDINGS: Nasopharynx: Unremarkable. Oropharynx: Unremarkable. No significant tonsillar enlargement. Hypopharynx: Unremarkable. Larynx: Unremarkable. Normal epiglottis. Retropharyngeal space: Unremarkable. Submandibular/Parotid glands: Normal. Glands are normal in size. Thyroid: Normal. No enlarged or calcified nodules. Lymph nodes: submandibular lymph nodes measuring up to 1.1 cm. Shotty lymph nodes in the jugular chains. Trachea: Visualized trachea is unremarkable. Lungs: Unremarkable as visualized. Bones/joints: Straightening of the spine which could be related to positional artifact or muscle spasms. Soft tissues: Unremarkable. No significant soft tissue swelling. IMPRESSION: Straightening of the spine which could be related to positional artifact or muscle spasms. submandibular lymph nodes measuring up to 1.1 cm. Shotty lymph nodes in the jugular chains. Dictated and Authenticated by: Ildefonso Cruz MD. Ordering:GEOFFREY Fournier MD
[2020-04-06] MEDS: Clindamycin 150 MG CAP 450 MG PO (19:18)
[2020-04-06 19:39] VITALS: BP 137/123; PULSE 74; RESP 16; O2SAT 98
== END 2020-04-06 19:19 | disposition home or self-care (01) ==
PROVIDERS: Emergency Provider Physician Assistant; PCP Nurse Practitioner Family
DX: R68.84 Jaw pain (principal); K04.7 Periapical abscess without sinus; R22.0 Localized swelling, mass and lump, head
CPT/HCPCS: 36415; 41800; 70491; 80053; 96361; 96365; 99281; 85025; J3490

== ENCOUNTER 2020-11-08 11:12 | Emergency (ER) | payer MEDICAID, SELFPAY ==
[2020-11-08 11:15] VITALS: BP 120/80; PULSE 55; RESP 16; TEMP 36.9; O2SAT 99
--- NOTE | 2020-11-08 11:43 | ED.GENADUL_ITS ---
Discharge Plan Disposition Patient Disposition: HOME Condition: Stable Discharge Details Clinical Impression: Abscess, dental Primary Care Provider: Arabella Burleson ED Provider: Silke Pacheco Home Meds and New Rx's Prescriptions: New penicillin V potassium 500 mg tablet 500 mg PO QID Qty: 40 RF: 0 No Action ibuprofen 800 mg Tablet 800 mg PO Q8H PRNRF: 0 methocarbamol 750 mg tablet 750 mg PO TID PRNRF: 0 Discharge Instructions Instructions: Dental Abscess (ED) Additional Instructions: Take antibiotic as prescribed until completed Follow-up with your dentist on Monday Gargle with warm salt water once an hour and spit Return with difficulty swallowing, fever, chest pain, or should you develop new or worsening complaints Ibuprofen 600 mg every 8 hours with food Tylenol 650 mg every 4 hours Medical Decision Making Patient feels symptomatic improvement Patient placed on penicillin Daughter called rules recommended Dental reevaluation on Monday recommended Return precautions discussed and patient expressed understanding No evidence of Kwame's angina Vitals stable HPI General Mode of arrival: ambulatory . Date/Time Provider Initiated Documentation: 11/08/20 11:15 . Limitations to Documentation: no limitations . Information obtained by: patient . HPI Narrative: This 25-year-old male presen ts with suspected dental abscess which started yesterday per patient. He denies any fever or chills. He denies any difficulty swallowing. He does state he has significant facial swelling. He denies any shortness of breath. He is otherwise reportedly healthy. He did take ibuprofen yesterday with mild relief in pain. He does have a dentist but has not followed up yet. He denies known trauma to the tooth. Related Data Home Medications Medication Instructions Recorded Confirmed ibuprofen 800 mg PO Q8H PRN 04/06/20 11/08/20 methocarbamol 750 mg PO TID PRN 04/06/20 04/06/20 penicillin V potassium 500 mg PO QID #40 tab 11/08/20 Previous Rx's Medication Instructions Recorded penicillin V potassium 500 mg PO QID #40 tab 11/08/20 Allergies Allergy/AdvReac Type Severity Reaction Status Date / Time No Known Allergies Allergy Unverified 11/08/20 11:19 General Stated Complaint: DentalOral GUY: 4 Review of Systems All systems reviewed & are unremarkable except as noted in HPI and below [facility] Surgical History Tonsillectomy and adenoidectomy Social History Smoking/Tobacco Use Status: Current every day Tobacco Type: cigarettes Smoking risk assessment performed?: Yes Alcohol Intake: former Drug use: Daily Substance use type: marijuana Do you feel safe at home: Yes Do you feel safe in your relationship?: Yes Exam Const General: cooperative and no acute distress [facility] Head images: 1. Swelling and tenderness noted, maintaining secretions, no soft palate induration Other: Uvula midline Eyes Pupils: PERRL Neck Other: no stridor Resp Effort & Inspection: normal respiratory effort Auscultation: clear to auscultation bilaterally Cardio Rate: regular rate Rhythm: regular rhythm Skin General skin exam: no rashes or lesions noted Neuro General: patient alert and patient oriented x3 Course Vital Signs Vital signs: Vital Signs Temperature 36.9 C 11/08/20 11:15 Pulse 55 L 11/08/20 11:15 Respiratory Rate 16 11/08/20 11:15 Blood Pressure 120/80 11/08/20 11:15 Pulse Oximetry 99 11/08/20 11:15 Temperature 36.9 C 11/08/20 11:15 Temperature Source Temporal Artery Scan 11/08/20 11:15 Pulse 55 L 11/08/20 11:15 Respiratory Rate 16 11/08/20 11:15 Respiratory Effort Non-Labored 11/08/20 11:20 Blood Pressure 120/80 11/08/20 11:15 Blood Pressure Position Sitting 11/08/20 11:15 Pulse Oximetry 99 11/08/20 11:15 Oxygen Delivery Method Room Air 11/08/20 11:15 Oxygen Flow Rate 0 11/08/20 11:15 Pain Level 7 11/08/20 11:15 Procedures Abscess I/D Site: Face Side (if applicable): Left Local Anesthetic: Lidocaine 1% Amount of anesthesia used (mL): 1 Amount of fluid expressed (mL): 3 Irrigation: No Packing used?: None Complications: Pain
[2020-11-08] MEDS: Ketorolac 15 MG/ML VIAL IM (11:59)
== END 2020-11-08 12:03 | disposition home or self-care (01) ==
PROVIDERS: Emergency Provider Physician Assistant; PCP Nurse Practitioner Family
DX: R22.0 Localized swelling, mass and lump, head (principal); K04.7 Periapical abscess without sinus
CPT/HCPCS: 96372; 99284; 99283; J1885

== ENCOUNTER 2021-01-01 19:30 | Outpatient (REF) | payer MEDICAID, SELFPAY ==
[2021-01-01 20:48] LABS: Abs Immature Grans 0.02 10^3/uL (0.0-0.06); Absolute Basophil Count 0.03 10^3/uL (0.0-0.2); Absolute Eosinophil Count 0.18 10^3/uL (0.0-0.7); Absolute Lymphocyte Count 3.76 10^3/uL (1.2-3.4); Absolute Neutrophil Count 4.13 10^3/uL (1.2-6.7); Basophils % 0.3; Eosinophils % 2.1; HCT 46.8 % (40.0-50.0); HGB 16.1 g/dL (13.5-17.5); Immature Grans % 0.2; Lymphocytes % 43.1; MCH 31.9 pg (27.0-33.0); MCHC 34.4 % (32.0-36.0); MCV 92.9 fL (80-95); MPV 11.3 fL (8.0-11.0); Monocytes % 6.9; Neutrophils % 47.4; Nucleated RBC 0 %; Platelet Count 182 10^3/uL (130-400); RBC 5.04 10^6/uL (4.36-5.78); RDW 12.6 % (11.8-14.1); RDW-SD 43.4 fL; WBC 8.72 10^3/uL (4.4-10.8)
[2021-01-01 20:58] LABS: ALT 19 U/L (16-63); AST 12 U/L (15-37); Albumin 4.5 g/dL (3.4-5.0); Alkaline Phosphatase 70 U/L (46-116); BUN 6 mg/dL (7-18); Bilirubin, Total 0.7 mg/dL (0.2-1.0); Calcium 9.7 mg/dL (8.5-10.1); Chloride 105 mmol/L (98-107); Glucose 80 mg/dL (74-106); Lipase 49 U/L (73-393); Potassium 3.9 mmol/L (3.5-5.1); Sodium 141 mmol/L (136-145); Total Protein 7.7 g/dL (6.4-8.2)
== END 2021-01-01 19:31 | disposition home or self-care (01) ==
LOC: NCHCN 19:30
PROVIDERS: PCP Nurse Practitioner Family; Visit Provider Family Medicine
DX: R10.9 Unspecified abdominal pain (principal); K92.2 Gastrointestinal hemorrhage, unspecified
CPT/HCPCS: 80053; 83690; 85025

== ENCOUNTER 2021-07-13 13:26 | Emergency (ER) | payer MEDICAID, SELFPAY ==
[2021-07-13 13:35] VITALS: BP 145/90; PULSE 62; RESP 16; TEMP 36.9; O2SAT 99
--- NOTE | 2021-07-13 14:06 | ED.GENADUL_ITS ---
Discharge Plan Disposition Patient Disposition: HOME Condition: Stable Discharge Details Clinical Impression: Abscess, dental Primary Care Provider: Arabella Burleson ED Provider: Silke Pacheco Home Meds and New Rx's Prescriptions: New penicillamine 250 mg capsule 250 mg PO QID Qty: 40 0RF Rx Instructions: administer on an empty stomach, 1 hour before or 2-3 hours after meals Continued ibuprofen 800 mg Tablet 800 mg PO Q8H PRN0RF Discharge Instructions Instructions: Dental Abscess (ED) Additional Instructions: Take yogurt daily while on antibiotic Ibuprofen and Tylenol for pain control return earlier with new or worsening complaints acquire dentist: list supplied Stand Alone Forms: Work Release Referrals: Arabella Burleson [Primary Care Provider] - Discharge Data Discharge Date/Time-TO BE ENTERED AT DEPARTURE: 07/13/21 14:09 Medical Decision Making Patient appears well Placed on antibiotics Given dental referral list No evidence of Ludwigs angina Medical Records Medical records reviewed: Yes I reviewed the patient's medical records. Lab Data Lab results reviewed: Yes I reviewed the patient's lab results. ECG Data Prior ECG tracings: available for review HPI General Date/Time Provider Initiated Documentation: 07/13/21 13:32 . HPI Narrative: This 25-year-old gentleman presents with left-sided upper dental pain. Denies f ever or chills. Denies difficulty swallowing. Denies any facial swelling. States the pain started yesterday. Denies any trauma to the affected area. Related Data Home Medications Medication Instructions Recorded Confirmed ibuprofen 800 mg tablet 800 mg PO Q8H PRN 04/06/20 07/13/21 penicillamine 250 mg capsule 250 mg PO QID #40 cap 07/13/21 Previous Rx's Medication Instructions Recorded penicillamine 250 mg capsule 250 mg PO QID #40 cap 07/13/21 Allergies Allergy/AdvReac Type Severity Reaction Status Date / Time No Known Allergies Allergy Unverified 07/13/21 13:38 General Stated Complaint: DentalOral GUY: 5 Review of Systems All systems reviewed & are unremarkable except as noted in HPI and below PFSH All Active Problems (Updated 07/13/21 @ 14:09 by CLOTILDE Gonzalez) Abscess, dental (Acute) Surgical History Tonsillectomy and adenoidectomy Social History Smoking/Tobacco Use Status: Current every day Tobacco Type: cigarettes Smoking risk assessment performed?: Yes Alcohol Intake: former Drug use: Daily Substance use type: marijuana Do you feel safe at home: Yes Do you feel safe in your relationship?: Yes Exam Const General: cooperative, comfortable and no acute distress HENMT Head: normal to inspection Teeth image: 1. 2. Abscess noted, uvula midline, no evidence of Kwame's angina Other: no facial swelling Resp Effort & Inspection: normal respiratory effort Cardio Rate: regular rate Course Vital Signs Vital signs: Vital Signs Temperature 36.9 C 07/13/21 13:35 Pulse 62 07/13/21 13:35 Respiratory Rate 16 07/13/21 13:35 Blood Pressure 145/90 H 07/13/21 13:35 Pulse Oximetry 99 07/13/21 13:35 Temperature 36.9 C 07/13/21 13:35 Temperature Source Oral 07/13/21 13:35 Pulse 62 07/13/21 13:35 Respiratory Rate 16 07/13/21 13:35 Respiratory Effort Non-Labored 07/13/21 13:37 Blood Pressure 145/90 H 07/13/21 13:35 Blood Pressure Position Sitting 07/13/21 13:35 Pulse Oximetry 99 07/13/21 13:35 Oxygen Delivery Method Room Air 07/13/21 13:35 Oxygen Flow Rate 0 07/13/21 13:35 Pain Level 5 07/13/21 13:39
--- NOTE | 2021-07-13 14:54 | NUR.NOTE ---
pharmacy called to question antibiotic order. Corrected order to penicillin vk 250 mg po qid for 10 days, quantity 40.
== END 2021-07-13 14:09 | disposition home or self-care (01) ==
PROVIDERS: Emergency Provider Physician Assistant; PCP Nurse Practitioner Family
DX: K04.7 Periapical abscess without sinus (principal)
CPT/HCPCS: 99283

== ENCOUNTER 2021-11-03 11:37 | Emergency (ER) | payer MEDICAID, SELFPAY ==
[2021-11-03 11:47] VITALS: BP 131/60; PULSE 76; RESP 16; TEMP 36.8; O2SAT 99
--- NOTE | 2021-11-03 12:21 | PDOC.ERCMPRO ---
- If Service Date Differs Date of service: 11/03/21 Time of Service: 12:21 Care Management Progress Note SBIRT screen: Pt endorses daily use of both nicotine and cannabis but does not endorse symptoms of cannabis dependence. We discussed tobacco cessation resources and harm reduction strategies with cannabis. Pt states cannabis helps him with chronic stomach problems. Pt was encouraged to follow up with his PCP regarding medicinal use of cannabis. Pt was receptive to these suggestions.
--- NOTE | 2021-11-03 12:33 | ED.GENADUL_ITS ---
Discharge Plan Disposition Patient Disposition: HOME Condition: Stable Discharge Details Clinical Impression: Pain, dental Primary Care Provider: Arabella Burleson ED Provider: Silke Pacheco Home Meds and New Rx's Prescriptions: New clindamycin HCl [Cleocin HCl] 300 mg capsule 300 mg PO Q6H Qty: 40 0RF Continued ibuprofen 800 mg Tablet 800 mg PO Q8H PRN pantoprazole 40 mg tablet,delayed release (DR/EC) 40 tab PO DAILY Label Comments: TAKE 1 TABLET BY MOUTH EVERY DAY 30 MINUTES BEFORE THE EVENING MEAL methocarbamol 750 mg tablet 1 tab PO PRN PRN Label Comments: TAKE ONE TABLET BY MOUTH THREE TIMES A DAY NEEDED Discharge Instructions Instructions: Toothache (ED) Additional Instructions: Room temperature and sharon. Only Call dentist for appointment, I supplied a list Take Tylenol as needed for discomfort Antibiotic as prescribed Yogurt daily while on antibiotic Referrals: Arabella Burleson [Primary Care Provider] - Discharge Data Discharge Date/Time-TO BE ENTERED AT DEPARTURE: 11/03/21 12:42 Medical Decision Making Patient tolerated procedure without incident Appears well Reports symptomatic improvement after block Placed on antibiotics Given dentist list for follow-up Return precautions discussed and patient expressed understanding Medical Records Medical records reviewed: Yes I reviewed the patient's medical records. Lab Data Lab results reviewed: Yes I reviewed the patient's lab results. HPI General Date/Time Provider Initiated Documentation: 11/03/21 11:50 . HPI Narrative: 26-year-old male presents with dental pain, right lower started this morning. Denies any fever or chills. Denies any chest pain or shortness of breath. Denies any dizziness or weakness. Denies difficulty swallowing or globus sensation. Related Data Home Medications Medication Instructions Recorded Confirmed ibuprofen 800 mg tablet 800 mg PO Q8H PRN 04/06/20 11/03/21 clindamycin HCl 300 mg capsule 300 mg PO Q6H #40 caps 11/03/21 (Cleocin HCl) methocarbamol 750 mg tablet 1 tab PO PRN PRN 11/03/21 11/03/21 pantoprazole 40 mg tablet,delayed 40 tab PO DAILY 11/03/21 11/03/21 release Previous Rx's Medication Instructions Recorded clindamycin HCl 300 mg capsule 300 mg PO Q6H #40 caps 11/03/21 (Cleocin HCl) Allergies Allergy/AdvReac Type Severity Reaction Status Date / Time Penicillins Allergy Unverified 11/03/21 11:51 General Stated Complaint: DentalOral GUY: 4 Review of Systems All systems reviewed & are unremarkable except as noted in HPI and below PFSH All Active Problems (Updated 11/03/21 @ 12:36 by CLOTILDE Gonzalez) Abscess, dental (Acute) Pain, dental (Acute) Surgical History Tonsillectomy and adenoidectomy Social History Smoking/Tobacco Use Status: Current every day Tobacco Type: cigarettes Smoking risk assessment performed?: Yes Alcohol Intake: former Drug use: Daily Substance use type: marijuana Do you feel safe at home: Yes Do you feel safe in your relationship?: Yes Exam Const General: cooperative, comfortable and no acute distress Orientation: alert and oriented x3 HENMT Teeth image: 1. Fracture noted , tenderness No deep space infection Uvula midline Throat: uvula midline Neck Neck: normal visual inspection Resp Effort & Inspection: normal respiratory effort Course Vital Signs Vital signs: Vital Signs Temperature 36.8 C 11/03/21 11:47 Pulse 76 11/03/21 11:47 Respiratory Rate 16 11/03/21 11:47 Blood Pressure 131/60 11/03/21 11:47 Pulse Oximetry 99 11/03/21 11:47 Temperature 36.8 C 11/03/21 11:47 Temperature Source Temporal Artery Scan 11/03/21 11:47 Pulse 76 11/03/21 11:47 Respiratory Rate 16 11/03/21 11:47 Respiratory Effort 11/03/21 11:49 Blood Pressure 131/60 11/03/21 11:47 Blood Pressure Position Sitting 11/03/21 11:47 Pulse Oximetry 99 11/03/21 11:47 Oxygen Delivery Method Room Air 11/03/21 11:47 Oxygen Flow Rate 0 11/03/21 11:47 Pain Level 5 11/03/21 11:47 Procedures Nerve Block Nerve Block 1: Local Anesthetic: Bupivicaine 0.5% Amount of anesthesia used (mL): 2 Intraoral Nerve Block: inferior alveolar Procedure Successful: Yes Patient Tolerated Procedure: well Complications: none
== END 2021-11-03 12:42 | disposition home or self-care (01) ==
PROVIDERS: Emergency Provider Physician Assistant; PCP Nurse Practitioner Family
DX: K03.81 Cracked tooth (principal); F17.210 Nicotine dependence, cigarettes, uncomplicated
CPT/HCPCS: 64400; 99283

== ENCOUNTER 2021-11-24 07:28 | Emergency (ER) | payer MEDICAID, SELFPAY ==
[2021-11-24 07:32] VITALS: BP 117/81; PULSE 72; RESP 16; TEMP 36.6; O2SAT 99
[2021-11-24 07:56] LABS: Abs Immature Grans 0.03 10^3/uL (0.0-0.06); Absolute Basophil Count 0.03 10^3/uL (0.0-0.2); Absolute Eosinophil Count 0.08 10^3/uL (0.0-0.7); Absolute Lymphocyte Count 1.59 10^3/uL (1.2-3.4); Absolute Monocyte Count 0.53 10^3/uL (0.1-0.8); Absolute Neutrophil Count 5.49 10^3/uL (1.2-6.7); Basophils % 0.4; HCT 46.6 % (40.0-50.0); HGB 16.4 g/dL (13.5-17.5); Immature Grans % 0.4; Lymphocytes % 20.5; MCH 32.2 pg (27.0-33.0); MCHC 35.2 % (32.0-36.0); MCV 91 fL (80-95); MPV 9.7 fL (8.0-11.0); Monocytes % 6.8; Neutrophils % 70.9; Platelet Count 174 10^3/uL (130-400); RDW 12.2 % (11.8-14.1); WBC 7.75 10^3/uL (4.4-10.8)
[2021-11-24] MEDS: Lactated Ringers 1,000 ML 1000 ML IV (07:57)
[2021-11-24] MEDS: FAMOTIDINE 20 MG in Normal Saline 100 ML 400 MG IVPB (07:57)
[2021-11-24 08:27] LABS: Lipase 82 U/L (73-393)
[2021-11-24 08:29] LABS: ALT 21 U/L (16-63); AST 14 U/L (15-37); Albumin 4.2 g/dL (3.4-5.0); Alkaline Phosphatase 57 U/L (46-116); Anion Gap 3.1 mmol/L (3-11); BUN 10 mg/dL (7-18); Bilirubin, Total 0.4 mg/dL (0.2-1.0); CO2 30.9 mmol/L (21.0-32.0); CREATININE 0.8 mg/dL (0.70-1.30); Calcium 9.2 mg/dL (8.5-10.1); Chloride 105 mmol/L (98-107); Estimated GFR 125.17 (mL/min/1.73m2); Glucose 99 mg/dL (74-106); Potassium 3.9 mmol/L (3.5-5.1); Sodium 139 mmol/L (136-145); Total Protein 7.8 g/dL (6.4-8.2)
--- NOTE | 2021-11-24 09:12 | ED.GENADUL_ITS ---
Discharge Plan Disposition Patient Disposition: [facility] INPATIENT Condition: Serious Discharge Details Chief Complaint: Abd Prob Primary Care Provider: Arabella Burleson ED Provider: Ferny Donato Home Meds and New Rx's Prescriptions: No Action ibuprofen 800 mg Tablet 800 mg PO Q8H PRN pantoprazole 40 mg tablet,delayed release (DR/EC) 40 tab PO DAILY Label Comments: TAKE 1 TABLET BY MOUTH EVERY DAY 30 MINUTES BEFORE THE EVENING MEAL methocarbamol 750 mg tablet 1 tab PO PRN PRN Label Comments: TAKE ONE TABLET BY MOUTH THREE TIMES A DAY NEEDED clindamycin HCl [Cleocin HCl] 300 mg capsule 300 mg PO Q6H Qty: 40 0RF Discharge Data Discharge Date/Time-TO BE ENTERED AT DEPARTURE: 11/24/21 10:57 Medical Decision Making 925 --26-year-old male with history of gastric ulcer disease, here with 3 days of epigastric abdominal pain now radiating into his right abdomen with associated bilious vomiting, loose stool and bright red blood per rectum.. Patient is hemodynamically stable. He has tenderness in epigastric and right mid abdomen. He does have some rebound tenderness. Bedside [id number] ultrasound of the right upper quadrant was performed by me: No free fluid, gallbladder is long, gallbladder wall thickness 3.5 mm, no pericholecystic fluid. Labs reviewed and no leukocytosis, normal LFTs, normal lipase. No anemia. Plan for CT of the abdomen pelvis to assess for acute surgical pathology including perforated ulcer versus other. Unfortunately CT is not available at [facility] at this time - I called the rn radiology and confirmed that CT is currently, awaiting part and unclear as to when will be available. I called closest appropriate facility to transfer the patient and discussed case with ED physician at [facility]. 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 I spoke with Dr. Pendleton who agrees with transfer and requests I speak again with ED. Awaiting call back from ED physician. -- I spoke with RN Vlad Villa at [place] who is under the impression that patient's transfer request is inappropriate and could constitute until evaluation. I respectfully disagreed given inability to rule out emergent medical condition and lack of diagnostic capability at [facility] that is currently available at [place]. I spoke briefly with another ED physician Dr. Kramer who transfer for CT and back is common practice and would be accepted. I did not feel this was a safe option nor in compliance with EMTALA. Dr. Kramer had to take another emergent call but would call back. 951 --I am concerned about delay in treamtent and contacted next closest appropriate hospital, [facility], discussed case with Dr. Dudley, she agrees to accept the patient in transfer ED to ED. Lab Data Lab results reviewed: Yes I reviewed the patient's lab results. Labs: Laboratory Tests Range/Units 11/24/21 11/24/21 11/24/21 07:49 07:49 07:49 WBC (4.4-10.8) 10^3/uL 7.75 RBC (4.36-5.78) 10^6/uL 5.10 Hgb (13.5-17.5) g/dL 16.4 Hct (40.0-50.0) % 46.6 MCV (80-95) fL 91 MCH (27.0-33.0) pg 32.2 MCHC (32.0-36.0) % 35.2 RDW (11.8-14.1) % 12.2 Plt Count (130-400) 10^3/uL 174 MPV (8.0-11.0) fL 9.7 Immature Gran % 0.4 Neutrophils % 70.9 Lymphocytes % 20.5 Monocytes % 6.8 Eosinophils % 1.0 Basophils % 0.4 Nucleated RBC % (0.0-0.3) % 0.0 Absolute Neutrophils (1.2-6.7) 10^3/uL 5.49 Absolute Lymphocytes (1.2-3.4) 10^3/uL 1.59 Absolute Monocytes (0.1-0.8) 10^3/uL 0.53 Absolute Eosinophils (0.0-0.7) 10^3/uL 0.08 Absolute Basophils (0.0-0.2) 10^3/uL 0.03 Sodium (136-145) mmol/L 139 Potassium (3.5-5.1) mmol/L 3.9 Chloride (98-107) mmol/L 105 Carbon Dioxide (21.0-32.0) mmol/L 30.9 Anion Gap (3-11) mmol/L 3.1 BUN (7-18) mg/dL 10 Creatinine (0.70-1.30) mg/dL 0.8 Est GFR (CKD-EPI 2020) (mL/min/1.73m2) 125.17 Glucose (74-106) mg/dL 99 Calcium (8.5-10.1) mg/dL 9.2 Total Bilirubin (0.2-1.0) mg/dL 0.4 AST (15-37) U/L 14 L ALT (16-63) U/L 21 Alkaline Phosphatase (46-116) U/L 57 Total Protein (6.4-8.2) g/dL 7.8 Albumin (3.4-5.0) g/dL 4.2 Lipase (73-393) U/L 82 HPI General Mode of arrival: ambulatory . Date/Time Provider Initiated Documentation: 11/24/21 07:42 . Limitations to Documentation: no limitations . Information obtained by: patient . HPI Narrative: 26-year-old male with history of gastric ulcer presents with chief complaint of abdominal pain. Patient notes abdominal pain started 3 days ago. Pain has persisted and worsened. Pain localized to his epigastric region and now radiating down the right side of his abdomen. Patient notes associated loose stool and vomiting green vomitus over the past 2 days. Patient has associated bright red blood per rectum 2 days ago that was moderate. He notes he has had this before. He has had endoscopy performed within the past year that he notes did not reveal significant abnormalities although he was on PPI for period of time last fall. He notes he saw his PCP yesterday who restarted PPI. Related Data Home Medications Medication Instructions Recorded Confirmed ibuprofen 800 mg tablet 800 mg PO Q8H PRN 04/06/20 11/24/21 clindamycin HCl 300 mg capsule 300 mg PO Q6H #40 caps 11/03/21 (Cleocin HCl) methocarbamol 750 mg tablet 1 tab PO PRN PRN 11/03/21 11/24/21 pantoprazole 40 mg tablet,delayed 40 tab PO DAILY 11/03/21 11/24/21 release Previous Rx's Medication Instructions Recorded clindamycin HCl 300 mg capsule 300 mg PO Q6H #40 caps 11/03/21 (Cleocin HCl) Allergies Allergy/AdvReac Type Severity Reaction Status Date / Time Penicillins Allergy Unverified 11/24/21 07:38 General Stated Complaint: Abd Prob GUY: 3 Review of Systems All systems reviewed & are unremarkable except as noted in HPI and below Constitutional Constitutional: Denies fever(s) Gastrointestinal Gastrointestinal: Reports hematochezia, Reports nausea and Reports vomiting PFSH All Active Problems Abscess, dental (Acute) Pain, dental (Acute) Surgical History Tonsillectomy and adenoidectomy Social History Smoking/Tobacco Use Status: Current every day Tobacco Type: cigarettes Smoking risk assessment performed?: Yes Alcohol Intake: former Drug use: Daily Substance use type: marijuana Do you feel safe at home: Yes Do you feel safe in your relationship?: Yes Exam Const General: cooperative and no acute distress HENMT Mouth: moist mucous membranes Eyes Conjunctivae: normal conjunctivae Sclera: normal sclerae Neck Neck: trachea midline Resp Auscultation: clear to auscultation bilaterally, no rales, no rhonchi and no wheezes Cardio Rate: regular rate and not tachycardic Rhythm: regular rhythm GI Palpation: soft, not firm, no guarding, no masses, not rigid and tender in the epigastrum and in the RLQ Auscultation: normal bowel sounds Skin General skin exam: no rashes or lesions noted Neuro General: patient alert, patient awake, patient oriented x3 and tone normal Extrem General: no edema Psych Appearance: grossly normal Mental Status: mental status grossly normal Speech and Movement: speech and movement normal Course Vital Signs Vital signs: Vital Signs Temperature 36.6 C 11/24/21 07:32 Pulse 72 11/24/21 07:32 Respiratory Rate 16 11/24/21 07:32 Blood Pressure 117/81 11/24/21 07:32 Pulse Oximetry 99 11/24/21 07:32 Temperature 36.6 C 11/24/21 07:32 Pulse 72 11/24/21 07:32 Respiratory Rate 16 11/24/21 07:32 Respiratory Effort 11/24/21 07:38 Blood Pressure 117/81 11/24/21 07:32 Pulse Oximetry 99 11/24/21 07:32 Pain Level 4 11/24/21 08:59 Lab/Test Results Lab/Test Results: Laboratory Tests Range/Units 11/24/21 11/24/2122 07:49 07:49 07:49 WBC (4.4-10.8) 10^3/uL 7.75 RBC (4.36-5.78) 10^6/uL 5.10 Hgb (13.5-17.5) g/dL 16.4 Hct (40.0-50.0) % 46.6 MCV (80-95) fL 91 MCH (27.0-33.0) pg 32.2 MCHC (32.0-36.0) % 35.2 RDW (11.8-14.1) % 12.2 Plt Count (130-400) 10^3/uL 174 MPV (8.0-11.0) fL 9.7 Immature Gran % 0.4 Neutrophils % 70.9 Lymphocytes % 20.5 Monocytes % 6.8 Eosinophils % 1.0 Basophils % 0.4 Nucleated RBC % (0.0-0.3) % 0.0 Absolute Neutrophils (1.2-6.7) 10^3/uL 5.49 Absolute Lymphocytes (1.2-3.4) 10^3/uL 1.59 Absolute Monocytes (0.1-0.8) 10^3/uL 0.53 Absolute Eosinophils (0.0-0.7) 10^3/uL 0.08 Absolute Basophils (0.0-0.2) 10^3/uL 0.03 Sodium (136-145) mmol/L 139 Potassium (3.5-5.1) mmol/L 3.9 Chloride (98-107) mmol/L 105 Carbon Dioxide (21.0-32.0) mmol/L 30.9 Anion Gap (3-11) mmol/L 3.1 BUN (7-18) mg/dL 10 Creatinine (0.70-1.30) mg/dL 0.8 Est GFR (CKD-EPI 2020) (mL/min/1.73m2) 125.17 Glucose (74-106) mg/dL 99 Calcium (8.5-10.1) mg/dL 9.2 Total Bilirubin (0.2-1.0) mg/dL 0.4 AST (15-37) U/L 14 L ALT (16-63) U/L 21 Alkaline Phosphatase (46-116) U/L 57 Total Protein (6.4-8.2) g/dL 7.8 Albumin (3.4-5.0) g/dL 4.2 Lipase (73-393) U/L 82
[2021-11-24 10:56] VITALS: BP 136/70; PULSE 82; RESP 16; O2SAT 99
== END 2021-11-24 10:57 ==
PROVIDERS: Emergency Provider Student in an Organized Health Care Education/Training Program; PCP Nurse Practitioner Family
DX: R10.13 Epigastric pain (principal); R11.14 Bilious vomiting; R10.816 Epigastric abdominal tenderness; R10.811 Right upper quadrant abdominal tenderness; F17.210 Nicotine dependence, cigarettes, uncomplicated
CPT/HCPCS: 36415; 80053; 83690; 96365; 96372; 99285; 85025; 99284

== ENCOUNTER 2022-12-20 13:11 | Emergency (ER) | payer MEDICAID, SELFPAY ==
[2022-12-20 13:19] VITALS: BP 115/69; PULSE 57; RESP 18; TEMP 36.3; O2SAT 98
== END 2022-12-20 14:26 | disposition left against medical advice (07) ==
LOC: ER 13:17
PROVIDERS: PCP Nurse Practitioner Family
DX: Z53.21 Procedure and treatment not carried out due to patient leaving prior to being seen by health care provider (principal)

== ENCOUNTER 2024-07-05 15:08 | Outpatient (REF) | payer MEDICAID, SELFPAY ==
[2024-07-05 21:17] LABS: HCT 43.6 % (40.0-50.0); HGB 15.2 g/dL (13.5-17.5); MCH 32.6 pg (27.0-33.0); MCHC 34.9 % (32.0-36.0); MCV 94 fL (80-95); MPV 10.1 fL (8.0-11.0); Platelet Count 192 10^3/uL (130-400); RBC 4.66 10^6/uL (4.36-5.78); RDW 12.9 % (11.8-14.1); RDW-SD 43.5 fL; WBC 9.01 10^3/uL (4.4-10.8)
[2024-07-05 21:36] LABS: ALT 17 U/L (16-63); AST 9 U/L (15-37); Albumin 3.7 g/dL (3.4-5.0); Alkaline Phosphatase 62 U/L (46-116); Anion Gap 5.2 mmol/L (3-11); BUN 9 mg/dL (7-18); Bilirubin, Total 0.3 mg/dL (0.2-1.0); CO2 29.8 mmol/L (21.0-32.0); CREATININE 0.7 mg/dL (0.70-1.30); Calcium 8.9 mg/dL (8.5-10.1); Chloride 107 mmol/L (98-107); Estimated GFR 128.71 (mL/min/1.73m2); Glucose 123 mg/dL (74-106); Potassium 3.9 mmol/L (3.5-5.1); Sodium 142 mmol/L (136-145); Total Protein 6.3 g/dL (6.4-8.2)
== END 2024-07-05 15:09 | disposition home or self-care (01) ==
LOC: NCHCN 15:08
PROVIDERS: PCP Nurse Practitioner Family; Visit Provider Physician Assistant
DX: K21.00 Gastro-esophageal reflux disease with esophagitis, without bleeding (principal)
CPT/HCPCS: 80053; 85027

== ENCOUNTER 2025-03-19 14:50 | Outpatient (REF) | payer MEDICAID, SELFPAY ==
[2025-03-19 19:08] LABS: ALT 22 U/L (10-49); AST 24 U/L (<34); Albumin 4.2 g/dL (3.2-5.0); Alkaline Phosphatase 70 U/L (46-116); Anion Gap 7.1 mmol/L (3-11); BUN 9 mg/dL (9-23); Bilirubin, Total 0.2 mg/dL (0.2-1.2); CO2 27.9 mmol/L (20.0-31.0); Calcium 9.0 mg/dL (8.3-10.6); Chloride 110 mmol/L (98-107); Glucose 85 mg/dL (74-106); Potassium 4.0 mmol/L (3.5-5.1); Sodium 145 mmol/L (136-145); Total Protein 6.6 g/dL (5.7-8.2)
[2025-03-21 18:32] LABS: Hepatitis C Ab w Rflx HCV PCR Negative (Negative)
[2025-03-21 20:37] LABS: HIV-1/2 Ag & Ab Screen Negative (Negative)
== END 2025-03-19 14:51 | disposition home or self-care (01) ==
LOC: NCHCN 14:50
PROVIDERS: PCP Nurse Practitioner Family; Visit Provider Physician Assistant
DX: F11.90 Opioid use, unspecified, uncomplicated (principal)
CPT/HCPCS: 80053; 86803; 87389